=== PATIENT | male | born 1965 | race American Indian/Alaskan Native ===

== ENCOUNTER 2018-03-13 18:13 | Emergency (ER) | payer MEDICAID ==
[2018-03-13 18:38] VITALS: TEMP 98.3
--- NOTE | 2018-03-13 20:20 | C.PDOC ---
History Of Present Illness 52 year old male presents to the ER with a complaint of intermittent bilateral leg swelling for the past month, left greater than right. Denies pain trauma, calf pain, prolonged travel, recent state of immobility, or recent coagulable state. Time Seen by Provider: 03/13/18 19:39 Chief Complaint (Nursing): Lower Extremity Problem/Injury History Per: Patient History/Exam Limitations: no limitations Onset/Duration Of Symptoms: Days, Intermittent Episodes Current Symptoms Are (Timing): Still Present Recent travel outside of the [place]: No Past Medical History Reviewed: Historical Data, Nursing Documentation, Vital Signs Vital Signs: Last Vital Signs Temp 98.3 F 03/13/18 18:34 Pulse 80 03/13/18 20:33 Resp 14 03/13/18 20:33 BP 130/80 03/13/18 20:33 Pulse Ox 99 03/13/18 21:37 Family History: States: Diabetes - Social History Hx Alcohol Use: No Hx Substance Use: No Review Of Systems Musculoskeletal: Positive for: Other (Bilateral leg swelling, left greater than right. No calf tenderness) Neurological: Negative for: Weakness, Numbness Physical Exam - Physical Exam Appears: Non-toxic Skin: Normal Color, Warm, Dry Head: Atraumatic, Normacephalic Eye(s): bilateral: Normal Inspection Cardiovascular: Rhythm Regular Respiratory: Normal Breath Sounds, No Rales, No Rhonchi, No Wheezing Extremity: No Tenderness, Pedal Edema (+1 pitting to left distal tibial pascal), No Calf Tenderness, Capillary Refill (<2 seconds), Swelling (Left foot, minimal to right foot) Pulses: Left Dorsalis Pedis: Normal, Right Dorsalis Pedis: Normal Neurological/Psych: Oriented x3, Normal Speech, Normal Motor, Normal Sensation Gait: Steady ED Course And Treatment O2 Sat by Pulse Oximetry: 99 (Room air) Pulse Ox Interpretation: Normal Progress Note: Patient is resting comfortably in the ER in no acute distress, vitals are stable, will discharge home with instructions to follow up with PMD or return if symptoms worsen. Disposition Counseled Patient/Family Regarding: Diagnosis, Need For Followup, Rx Given - Disposition Referrals: Diana Werner MD [Staff Provider] - Disposition: HOME/ ROUTINE Disposition Time: 20:18 Condition: STABLE Additional Instructions: Please follow up with PMD Elevate your leg \ May use compression stockings Return to ER if SOB, calf pain , redness, warmth or worse Instructions: Dependent Edema (DC) Forms: [facility] ([place]) - Clinical Impression Clinical Impression: Dependent edema - PA / RESEARCH STATISTICIAN / Resident Statement MD/DO has reviewed & agrees with the documentation as recorded. - Scribe Statement The provider has reviewed the documentation as recorded by the Scribe Nino Abdalla All medical record entries made by the Scribe were at my direction and personally dictated by me. I have reviewed the chart and agree that the record accurately reflects my personal performance of the history, physical exam, medical decision making, and the department course for this patient. I have also personally directed, reviewed, and agree with the discharge instructions and disposition.
[2018-03-13 20:34] VITALS: BP 130/80; PULSE 80; RESP 14
[2018-03-13 21:34] VITALS: O2SAT 99
== END 2018-03-13 20:34 | disposition home or self-care (01) ==
LOC: C.ER 18:13
DX: R60.9 Edema, unspecified (principal)

== ENCOUNTER 2019-01-17 15:35 | Emergency (ER) | payer SELFPAY ==
[2019-01-17 15:43] VITALS: RESP 18
[2019-01-17] MEDS ORDERED: Aspirin 325 mg EC Tablets PO STA (16:03)
--- NOTE | 2019-01-17 16:30 | C.PDOC ---
History Of Present Illness 53 y/o male comes in to ED complaining of chest pain for the past 3-4 days. States that the chest pain is nonradiating, intermittent in nature, and rated it 7/10. Patient reports he typically gets this type of chest pain and would drink douglas blanka that would make him feel better; however, this time there was no relief. He notes he developed a sore throat and cough the next day but denies any fever, chills, headache, dizziness, SOB, nausea, vomiting, diarrhea, or abdominal pain. Patient is not taking any medications for his symptoms. Time Seen by Provider: 01/17/19 15:47 Chief Complaint (Nursing): Cough, Cold, Congestion History Per: Patient History/Exam Limitations: no limitations Onset/Duration Of Symptoms: Days Current Symptoms Are (Timing): Still Present Past Medical History Reviewed: Historical Data, Nursing Documentation, Vital Signs Vital Signs: Last Vital Signs Temp 98.5 F 01/17/19 15:41 Pulse 79 01/17/19 15:41 Resp 18 01/17/19 15:41 BP 129/79 01/17/19 15:41 Pulse Ox 97 01/17/19 15:41 - Medical History PMH: No Chronic Diseases Family History: States: Diabetes - Social History Hx Alcohol Use: No Hx Substance Use: No - Immunization History Hx Tetanus Toxoid Vaccination: No Hx Influenza Vaccination: No Hx Pneumococcal Vaccination: No Review Of Systems Constitutional: Negative for: Fever, Chills, Sweats Cardiovascular: Positive for: Chest Pain Respiratory: Negative for: Shortness of Breath Gastrointestinal: Negative for: Nausea, Vomiting, Abdominal Pain, Diarrhea Musculoskeletal: Negative for: Neck Pain Neurological: Negative for: Headache, Dizziness Physical Exam - Physical Exam Appears: Non-toxic, No Acute Distress Skin: Warm, Dry Head: Atraumatic, Normacephalic Eye(s): bilateral: Normal Inspection, PERRL, EOMI Ear(s): Bilateral: Normal Oral Mucosa: Moist Throat: Normal, No Erythema, No Exudate Neck: Supple Cardiovascular: Rhythm Regular, No Murmur Respiratory: Normal Breath Sounds, No Rales, No Rhonchi, No Wheezing Gastrointestinal/Abdominal: Soft, No Tenderness Extremity: No Pedal Edema Extremity: Bilateral: Normal ROM Neurological/Psych: Oriented x3, Normal Speech, Normal Cognition ED Course And Treatment - Laboratory Results Result Diagrams: 01/17/19 16:30 01/17/19 16:30 ECG: Interpreted By Me, Viewed By Me ECG Rhythm: Sinus Bradycardia ECG Interpretation: No Acute Changes Rate From EC O2 Sat by Pulse Oximetry: 97 (RA) Pulse Ox Interpretation: Normal - Other Rad CXR X-Ray: Read By Radiologist Interpretation: FINDINGS: LUNGS: No active pulmonary disease. PLEURA: No significant pleural effusion identified. No pneumothorax apparent. CARDIOVASCULAR: No aortic atherosclerotic calcification present. Normal cardiac size. No pulmonary vascular congestion. OSSEOUS STRUCTURES: No significant abnormalities. VISUALIZED UPPER ABDOMEN: Normal. OTHER FINDINGS: None. IMPRESSION: No active disease. Medical Decision Making Medical Decision Making: Plan: --EKG- normal --Labs- unramarkable --Chest XR- neg --Aspirin 325 mg PO Disposition Counseled Patient/Family Regarding: Studies Performed, Diagnosis, Need For Followup, Rx Given - Disposition Referrals: Diana Werner MD [Staff Provider] - Disposition: HOME/ ROUTINE Disposition Time: 17:05 Condition: STABLE Additional Instructions: HAN BRAXTON, thank you for letting us take care of you today for Viral URI. Please take the Tessalon Perles up to three times a day as needed for cough Rest and Hydration Follow up with Dr. Werner in 1-2 days Return to the ED if symptoms worsen Prescriptions: Benzonatate [Tessalon Perles] 100 mg PO TID #30 sgl Instructions: Viral Upper Respiratory Infection, Adult (DC) Forms: [facility] ([place]) - Clinical Impression Clinical Impression: Viral syndrome - PA / SITE AUDITOR / Resident Statement MD/DO has reviewed & agrees with the documentation as recorded. - Scribe Statement The provider has reviewed the documentation as recorded by the Scribe Kim Cason All medical record entries made by the Scribe were at my direction and personally dictated by me. I have reviewed the chart and agree that the record accurately reflects my personal performance of the history, physical exam, medic al decision making, and the department course for this patient. I have also personally directed, reviewed, and agree with the discharge instructions and disposition.
[2019-01-17 16:34] LABS: BASO % 0.5 % (0.0-2.0); EOS % 0.5 % (0.0-4.0); HEMOGLOBIN 12.8 g/dL (12.0-18.0); LYMPH # 1.8 K/uL (1.0-4.3); LYMPH % 41.7 % (20.0-40.0); MEAN CELL VOLUME 95.3 fL (80.0-94.0); MEAN CORPUSCULAR HEMOGLOBIN 31.8 pg (27.0-31.0); MEAN CORPUSCULAR HGB CONC 33.3 g/dL (33.0-37.0); MEAN PLATELET VOLUME 8.6 fL (7.2-11.7); MONO # 0.4 K/uL (0.0-0.8); MONO % 8.3 % (0.0-10.0); NEUT # 2.1 K/uL (1.8-7.0); RBC 4.04 Mil/uL (4.40-5.90); RED CELL DISTRIBUTION WIDTH 13.1 % (11.5-14.5); WHITE BLOOD COUNT 4.3 K/uL (4.8-10.8)
[2019-01-17 16:50] LABS: ALB/GLOB RATIO 1.5 (1.0-2.1); ALT/SGPT 9 U/L (21-72); AST/SGOT 20 U/L (17-59); BLOOD UREA NITROGEN 11 mg/dL (9-20); CALCIUM 9.1 mg/dl (8.6-10.4); GFR NON-AFRICAN AMERICAN > 60
[2019-01-17 17:06] VITALS: BP 122/79; PULSE 55; TEMP 98.4
[2019-01-17 17:08] VITALS: O2SAT 97
--- NOTE | 2019-01-17 17:48 | RAD ---
Date of service: 01/17/2019 HISTORY: chest pain COMPARISON: 01/07/2016 TECHNIQUE: Chest PA and lateral views FINDINGS: LUNGS: No active pulmonary disease. PLEURA: No significant pleural effusion identified. No pneumothorax apparent. CARDIOVASCULAR: No aortic atherosclerotic calcification present. Normal cardiac size. No pulmonary vascular congestion. OSSEOUS STRUCTURES: No significant abnormalities. VISUALIZED UPPER ABDOMEN: Normal. OTHER FINDINGS: None. IMPRESSION: No active disease.
--- NOTE | 2019-01-18 09:22 | CARD ---
APPROVED REPORT Date of service: 01/17/2019 EKG Measurement Heart [id number] OR [id number] [id number] <Conclusion> Sinus bradycardia Otherwise normal ECG
== END 2019-01-17 17:11 | disposition home or self-care (01) ==
LOC: C.ER 15:35
DX: B34.9 Viral infection, unspecified (principal)